=== PATIENT | male | born 1950 | race Caucasian/White ===

== ENCOUNTER 2020-08-06 17:09 | Emergency (ER) | payer SELFPAY ==
[~2020-08-06] VITALS: Ht 162.6 cm; Wt 70.5 kg
[2020-08-06 17:22] VITALS: BP 156/103
== END 2020-08-06 18:03 | disposition left against medical advice (07) ==
LOC: EMS 17:09
DX: R07.9 Chest pain, unspecified (principal); F10.129 Alcohol abuse with intoxication, unspecified; Y90.9 Presence of alcohol in blood, level not specified